=== PATIENT | female | born 1975 | race American Indian/Alaskan Native ===

== ENCOUNTER 2018-09-03 18:11 | Emergency (ER) | payer OTHER ==
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
[2018-09-03] MEDS ORDERED: IBUPROFEN PO ONE (20:21)
[2018-09-03] MEDS ORDERED: NORCO 5/325 PO ONE (20:21)
[2018-09-03] MEDS ORDERED: ZOFRAN ODT PO ONE (20:21)
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
[2018-09-04 01:49] VITALS: BP 133/85
== END 2018-09-03 23:35 | disposition home or self-care (01) ==
LOC: ED 18:11
DX: S29.011A Strain of muscle and tendon of front wall of thorax, initial encounter (principal); S76.912A Strain of unspecified muscles, fascia and tendons at thigh level, left thigh, initial encounter; M62.830 Muscle spasm of back; R51 Headache; M54.2 Cervicalgia; V89.2XXA Person injured in unspecified motor-vehicle accident, traffic, initial encounter; Y93.89 Activity, other specified; Y92.488 Other paved roadways as the place of occurrence of the external cause; Y99.8 Other external cause status
CPT/HCPCS: 70450; 71046; 72125; 72128; 72131; 99284; Q0162

== ENCOUNTER 2019-04-21 13:14 | Outpatient (CLI) | payer BC | END 2019-04-21 13:15 | disposition home or self-care (01) | LOC: LAB 13:14 | PROVIDERS: ATTEND Obstetrics & Gynecology | DX: N91.4 Secondary oligomenorrhea (principal) | CPT/HCPCS: 36415; 82627; 82670; 83001; 83525; 84146; 84402; 84443 ==

== ENCOUNTER 2019-12-11 11:23 | Emergency (ER) | payer BC ==
[2019-12-11 11:29] VITALS: BP 135/79
--- NOTE | 2019-12-11 12:22 | Emergency Department Report ---
Chief Complaint: Back Pain/Injury Stated Complaint: BACK PAIN Time Seen by Provider: 12/11/19 12:10 - Exam Vital Signs: Vital Signs 12/11/19 11:28 Temperature 97.7 F Pulse Rate 84 Respiratory 18 Rate Blood Pressure 135/79 O2 Sat by Pulse 100 Oximetry MSE screening note: Focused history and physical exam performed. Due to findings the following was ordered: ED Disposition for MSE Condition: Stable Referrals: PRIMARY CARE, [Primary Care Provider] - 3-5 Days
--- NOTE | 2019-12-11 12:27 | Emergency Department Report ---
ED Back Pain/Injury HPI - General Chief Complaint: Back Pain/Injury Stated Complaint: BACK PAIN Time Seen by Provider: 12/11/19 12:10 Source: patient Limitations: No Limitations - History of Present Illness Initial Comments: 44-year-old -[place] female presents to the emergency room complaining of mid back pain that started yesterday while at work. 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 Patient states that she went to the ER yesterday evening about 7:00 and waited for about 3 hours and decided to go home to take some pain medication as a rest. Patient comes back today for evaluation. Patient states that the pain is mostly on the left side and denies any radiation to her buttocks or her thighs. Patient reports no past medical history takes no medications on a daily basis and has no known drug allergies. Last menstrual period was 12/11/2019 Complaint: back injury Onset/Timin -: days(s) Similar Symptoms Previously: Yes Place: work Radiation: none Severity scale (0 -10): 8 Quality: burning, sharp Consistency: constant Improves With: none Worsens With: movement Context: while lifting Associated Symptoms: denies other symptoms - Related Data Previous Rx's Medication Instructions Recorded Last Taken Type Ibuprofen [Motrin] 800 mg PO Q8HR PRN #20 tablet 09/03/18 Unknown Rx Tizanidine HCl [Zanaflex] 4 mg PO Q8H PRN #21 capsule 09/03/18 Unknown Rx traMADoL [Ultram] 50 mg PO Q6HR PRN #12 tablet 09/03/18 Unknown Rx Ibuprofen [Motrin 800 MG tab] 800 mg PO Q8HR PRN #30 tablet 12/11/19 Unknown Rx tiZANidine [Zanaflex 4mg TAB] 4 mg PO Q6H PRN #20 tablet 12/11/19 Unknown Rx Allergies Allergy/AdvReac Type Severity Reaction Status Date / Time No Known Allergies Allergy Unverified 09/03/18 23:28 ED Review of Systems ROS: Stated complaint: BACK PAIN Other details as noted in HPI ED Past Medical Hx - Past Medical History Previous Medical History?: No - Surgical History Past Surgical History?: No - Social History Smoking Status: Never Smoker Substance Use Type: None - Medications Home Medications: Home Medications Medication Instructions Recorded Confirmed Last Taken Type Ibuprofen [Motrin] 800 mg PO Q8HR PRN #20 tablet 09/03/18 Unknown Rx Tizanidine HCl [Zanaflex] 4 mg PO Q8H PRN #21 capsule 09/03/18 Unknown Rx traMADoL [Ultram] 50 mg PO Q6HR PRN #12 tablet 09/03/18 Unknown Rx Ibuprofen [Motrin 800 MG tab] 800 mg PO Q8HR PRN #30 tablet 12/11/19 Unknown Rx tiZANidine [Zanaflex 4mg TAB] 4 mg PO Q6H PRN #20 tablet 12/11/19 Unknown Rx ED Physical Exam - General Limitations: No Limitations General appearance: alert, in no apparent distress - Head Head exam: Present: atraumatic, normocephalic - Eye Eye exam: Present: normal appearance - ENT ENT exam: Present: mucous membranes moist - Neck Neck exam: Present: normal inspection - Extremities Exam Extremities exam: Present: normal inspection - Back Exam Back exam: Present: full ROM, muscle spasm, paraspinal tenderness (Mostly on the left side) - Neurological Exam Neurological exam: Present: alert, oriented X3, normal gait - Psychiatric Psychiatric exam: Present: normal affect, normal mood - Skin Skin exam: Present: warm, dry, intact, normal color. Absent: rash ED Course Vital Signs 12/11/19 11:28 Temperature 97.7 F Pulse Rate 84 Respiratory 18 Rate Blood Pressure 135/79 O2 Sat by Pulse 100 Oximetry ED Medical Decision Making - Medical Decision Making 44-year-old -[place] female presents to the emergency room complaining of mid back pain that started yesterday while at work. 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 Patient states that she went to the ER yesterday evening about 7:00 and waited for about 3 hours and decided to go home to take some pain medication as a rest. Patient comes back today for evaluation. Patient states that the pain is mostly on the left side and denies any radiation to her buttocks or her thighs. Patient reports no past medical history takes no medications on a daily basis and has no known drug allergies. Last menstrual period was 12/11/2019 Patient will be given a Toradol 30 mg IM and discharged with ibuprofen Zanaflex instructed to increase her water intake and to follow-up with a primary care provider. Critical care attestation.: If time is entered above; I have spent that time in minutes in the direct care of this critically ill patient, excluding procedure time. ED Disposition Clinical Impression: Acute back pain Disposition: - TO HOME OR SELFCARE Is pt being admited?: No Does the pt Need Aspirin: No Condition: Stable Instructions: Back Pain (ED) Additional Instructions: Increase your water intake take your pain medication and muscle relaxant only as needed. Rest warm compresses or heating pad to your back. Follow-up with a primary care provider if his symptoms persist or gets worse. Prescriptions: Ibuprofen [Motrin 800 MG tab] 800 mg PO Q8HR PRN #30 tablet PRN Reason: Pain , Severe (7-10) tiZANidine [Zanaflex 4mg TAB] 4 mg PO Q6H PRN #20 tablet PRN Reason: Muscle Spasm Referrals: PRIMARY MD DIMAS [Primary Care Provider] - 3-5 Days GEORGETTE LUNSFORD MD [Staff Physician] - 3-5 Days Forms: Work/School Release Form(ED)
== END 2019-12-11 13:25 | disposition home or self-care (01) ==
LOC: ED 11:23
DX: M54.9 Dorsalgia, unspecified (principal); Z79.899 Other long term (current) drug therapy
CPT/HCPCS: 99282